=== PATIENT | female | born 1975 | race Asian ===

== ENCOUNTER → 2019-01-03 13:43 | Outpatient (CLI) | payer OTHER, SELFPAY ==
--- NOTE | 2019-01-03 | DI.US.S_ITS ---
PROCEDURE: US THYROID INDICATIONS: LOCALIZED SWELLING TECHNIQUE: Real-time scanning was performed of the thyroid gland, with image documentation. COMPARISON: None. FINDINGS: Right: Thyroid lobe measures 4.3 x 1 x 1.1 cm, and is homogeneous in echotexture. Left: Thyroid lobe measures 3.3 x 0.8 x 1.2 cm, and is homogenous in echotexture. Isthmus: 2 mm thick. No nodules. No thyroid hyperemia. IMPRESSION: Negative exam. No thyroid nodules, thyroid enlargement, or hyperemia. Dictated by: Kalyan Jordan M.D. on 01/03/2019 at 16:13 Approved by: Kalyan Jordan M.D. on 01/03/2019 at 16:14
[2019-01-03 14:56] LABS: Free T3, Triiodothyronine Free 3.39 pg/mL (2.77-5.27); Free T4, Direct Thyroxine 0.64 ng/dL (0.78-2.19); T4 Total Thyroxine 4.34 ug/dL (5.5-11.0)
[2019-01-03 15:09] LABS: Thyroid Stimulating Hormone 2.97 uIU/mL (0.47-4.68)
== END ==
PROVIDERS: PCP Obstetrics & Gynecology; Visit Provider Obstetrics & Gynecology
DX: R22.1 Localized swelling, mass and lump, neck (principal)
CPT/HCPCS: 36415; 76536; 84436; 84439; 84443; 84481